=== PATIENT | female | born 1965 | race Two or more races ===

== ENCOUNTER → 2024-10-03 | Outpatient (CLI) | payer BC, MEDICAID, SELFPAY ==
--- NOTE | 2024-10-03 11:00 | XR_ITS ---
Examination: Screening digital mammography, bilateral Computer aided detection 3-D breast Tomosynthesis, bilateral Date and time of exam: October 03, 2024 1029 hours Comparison February 13, 2023 Indication: Screening Technique: Nonmagnified MLO, CC views of the breasts to been obtained, reconstructed from 3-D Tomosynthesis images. R2 computer aided detection program utilized for evaluation of suspicious masses and/or abnormal calcifications. 3-D Tomosynthesis images obtained. Findings: Scattered areas of fibroglandular density. Benign calcifications. No interval suspicious masses Impression: BI-RADS category II: Benign Findings. Recommend 1 year follow-up mammogram.
== END | disposition home or self-care (01) ==
PROVIDERS: Referring Provider Registered Nurse Community Health; Visit Provider Registered Nurse Community Health
DX: Z12.31 Encounter for screening mammogram for malignant neoplasm of breast (principal); R92.323 Mammographic fibroglandular density, bilateral breasts; R92.1 Mammographic calcification found on diagnostic imaging of breast
CPT/HCPCS: 77063; 77067

== ENCOUNTER → 2025-03-31 | Outpatient (CLI) | payer BC, MEDICAID, SELFPAY ==
--- NOTE | 2025-03-31 14:26 | XR_ITS ---
Examination: Pelvic ultrasound, transabdominal, complete Technique: Transabdominal ultrasound of the pelvis performed using grayscale imaging Date and time of exam: March 31, 2025, 1435 hours INDICATIONS: Right and left-sided pelvic pain beginning one week ago FINDINGS: Uterus 7.4 cm retroverted endometrial stripe 0.7 cm No uterine mass Ovaries obscured by bowel gas IMPRESSION: Limited study No uterine mass demonstrated
--- NOTE | 2025-03-31 14:26 | XR_ITS ---
Examination: Ultrasound soft tissue extremity right and left groin TECHNIQUE: Grayscale sonographic images soft tissue right groin Date and time: March 31, 2025 1442 hours INDICATIONS: Right and left groin pain one week FINDINGS: No cystic or solid mass, no hernia involving either groin IMPRESSION: No cystic or solid mass, no hernia involving either groin
== END | disposition home or self-care (01) ==
LOC: CDIM 14:18
PROVIDERS: PCP Registered Nurse Community Health; Referring Provider Registered Nurse Community Health; Visit Provider Registered Nurse Community Health
DX: N85.4 Malposition of uterus (principal); R10.2 Pelvic and perineal pain; R10.32 Left lower quadrant pain
CPT/HCPCS: 76856; 76882

== ENCOUNTER → 2025-09-28 | Outpatient (CLI) | payer BC, MEDICAID, SELFPAY ==
--- NOTE | 2025-09-28 10:45 | XR_ITS ---
Examination: Abdomen sonogram, complete Date and time of exam: September 28, 2025, 1123 hours INDICATIONS: Diagnosis fatty liver. Technique: Multiple real-time grayscale transabdominal sonographic images of the abdomen have been obtained. Findings: Normal gallbladder Normal common bile duct 0.4 cm Pancreatic head 2.7 cm Aorta not enlarged Liver 14.4 cm fatty infiltration no focal liver lesions Normal hepatopetal portal venous flow Patent IVC Right kidney 12.5 cm cortex 2.3 cm Left kidney 10.8 cm renal cortex 2.5 cm No hydronephrosis or renal calculi Spleen 9.5 cm IMPRESSION: Normal gallbladder Liver normal size fatty infiltration no focal liver lesions
--- NOTE | 2025-09-28 11:15 | XR_ITS ---
Examination: Screening digital mammography, bilateral Computer aided detection 3-D breast Tomosynthesis, bilateral Date and time of exam: September 28, 2025, 1112 hours, compared to mammograms dating to February 13, 2023 Indication: Screening Technique: Nonmagnified MLO, CC views of the breasts to been obtained, reconstructed from 3-D Tomosynthesis images. R2 computer aided detection program utilized for evaluation of suspicious masses and/or abnormal calcifications. 3-D Tomosynthesis images obtained. Findings: Scattered areas of fibroglandular density. Stable 2 nodules in the upper outer left breast No interval suspicious masses Impression: BI-RADS category II: Benign Findings. Recommend 1 year follow-up mammogram.
== END | disposition home or self-care (01) ==
LOC: CDIM 10:46
PROVIDERS: PCP Registered Nurse Community Health; Referring Provider Registered Nurse Community Health; Visit Provider Registered Nurse Community Health
DX: Z12.31 Encounter for screening mammogram for malignant neoplasm of breast (principal); R92.323 Mammographic fibroglandular density, bilateral breasts; K76.0 Fatty (change of) liver, not elsewhere classified
CPT/HCPCS: 76700; 77063; 77067